=== PATIENT | female | born 1985 | race Caucasian/White ===

== ENCOUNTER 2021-06-28 11:03 | Emergency (ER) | payer OTHER, SELFPAY ==
--- NOTE | 2021-06-28 11:04 | ED.FEMALEGU ---
HPI - Female Genitourinary General Chief complaint: Urogenital-Female Stated complaint: tampon stuck Time Seen by Provider: 06/28/21 11:04 Source: patient and RN notes reviewed History of Present Illness HPI Narrative: Patient is a 35-year-old female who presents the urgent care with complaints of a possible retained tampon. Patient states that she is positive she put a tampon in at around 5:30 AM today. Denies any fevers, chills, nausea, vomiting, pain. No other acute complaints. No acute distress noted. Patient aware of the plan of care. Some parts of this dictation were generated by voice recognition software and may contain typographical and/or grammatical inaccuracies. Related Data Home Medications Medication Instructions Recorded Confirmed omeprazole 20 mg PO DAILY 06/28/21 06/28/21 Allergies Allergy/AdvReac Type Severity Reaction Status Date / Time Penicillins Allergy Mild Unknown Verified 06/28/21 11:13 Review of Systems Review of Systems: CONSTITUTIONAL: Denies fever, chills, or sweats. EYES: Denies visual changes, redness, or discharge. ENT: Denies rhinorrhea, congestion, sore throat, or otalgia. CARDIOVASCULAR: Denies chest pain, palpitations, or edema. RESPIRATORY: Denies cough or dyspnea. GASTROINTESTINAL: Denies abdominal pain, nausea, vomiting, or diarrhea. GENITOURINARY: Denies dysuria or hematuria. Reports of possible retained tampon SKIN: Denies rash or itching. MUSCULOSKELETAL: Denies back pain, joint pain, or myalgia. NEUROLOGIC: Denies headache, numbness, or weakness. All other systems reviewed are negative, except as documented in HPI. PMFSH Comments At the time of my signature, I reviewed and agree with the nursing past medical, surgical, social, and family history. There is no relevant family history pertinent to the patient complaint. Exam Narrative: GENERAL: This is a well-nourished, well-developed patient, in no apparent distress. HEAD: normocephalic, atraumatic. EYES: PERRL. Sclera clear/white. Vision is grossly intact. EARS: External ears normal NOSE: External nose normal with no obvious nasal discharge, nares without redness, no rhinorrhea. THROAT: Mucous membranes moist NECK: Neck supple CARDIOVASCULAR: Regular rate and rhythm without murmurs, gallops, or rubs. RESPIRATORY: Clear to auscultation. Breath sounds equal bilaterally. No wheezes, rales, or rhonchi. : See procedures?note notable retained tampon visualized SKIN: warm, intact with no suspicious lesions or rash, good texture and turgor. NEURO: awake, alert, and oriented to person, place and time. There were no obvious focal neurologic abnormalities. EXTREMITIES: No clubbing, cyanosis, or edema. Course Vital Signs Vital signs: Vital Signs Temperature 98 F 06/28/21 11:09 Pulse Rate 60 06/28/21 11:09 Respiratory Rate 20 06/28/21 11:09 Blood Pressure 152/102 H 06/28/21 11:09 Pulse Oximetry 99 06/28/21 11:09 Temperature 98 F 06/28/21 11:14 Pulse Rate 60 06/28/21 11:14 Respiratory Rate 20 06/28/21 11:14 Blood Pressure 152/102 H 06/28/21 11:14 Pulse Oximetry 99 06/28/21 11:14 Reviewed-patient is informed that they may have pre-hypertension or hypertension based on a blood pressure reading in the department. I recommend the patient call the primary care provider listed on their discharge instructions or a physician of their choice this week to arrange follow-up for further evaluation of possible pre-hypertension or hypertension. Procedures Foreign Body Removal Foreign Body #1: Site: vagina Description of foreign body: other (Possible retained tampon) Sedation/Analgesia: none Confirmed by:: direct visualization Complications: none Post-procedure exam: awake, alert Foreign Body Removal Narrative: No foreign body removed. Suspected retained tampon not present. Used lighted speculum for visualization. Visualized cervix without any notable retain
[2021-06-28 11:09] VITALS: BP 152/102; PULSE 60; RESP 20; TEMP 36.6; O2SAT 99
[2021-06-28 11:14] VITALS: BP 152/102; PULSE 60; RESP 20; TEMP 36.6; O2SAT 99
== END 2021-06-28 11:28 | disposition home or self-care (01) ==
PROVIDERS: Emergency Provider Nurse Practitioner Family
DX: T19.2XXA Foreign body in vulva and vagina, initial encounter (principal); Z98.84 Bariatric surgery status; K21.9 Gastro-esophageal reflux disease without esophagitis
CPT/HCPCS: 99202; G0463

== ENCOUNTER 2022-01-21 08:43 | Emergency (ER) | payer OTHER, SELFPAY ==
[2022-01-21 08:48] VITALS: BP 148/102; PULSE 74; RESP 20; TEMP 37.1; O2SAT 100
[2022-01-21 08:58] VITALS: BP 117/83
--- NOTE | 2022-01-21 09:02 | ED.GENADULT ---
HPI - General Adult General Chief complaint: Anxiety Stated complaint: reaction to prednisone Time Seen by Provider: 01/21/22 09:05 Source: patient and RN notes reviewed Mode of arrival: ambulatory Limitations: no limitations History of Present Illness HPI narrative: 46-year-old female presented for concern of reaction to prednisone, stating she has been tearful and feels chest tightness since yesterday. The day before yesterday, she started prednisone for sinus congestion which she had had for about 6 days. She had a negative rapid COVID test, and she contacted her telehealth doctor who prescribed her prednisone for her symptoms. She took 40 mg on day 1 and day 2, and at that time she developed increased anxiety. She endorses that she has baseline anxiety at an 8, and states she has taken a hit of THC which worsened anxiety yesterday. She denies SI/HI. Denies sob, wheezing, n/v/d/f/c. Related Data Home Medications Medication Instructions Recorded Confirmed prednisone 20 mg PO DAILY 01/21/22 01/21/22 Allergies Allergy/AdvReac Type Severity Reaction Status Date / Time Penicillins Allergy Mild Unknown Verified 01/21/22 09:07 Review of Systems Review of Systems: CONSTITUTIONAL: denies malaise, chills, sweats, fever EYES: Denies visual changes, redness, or discharge ENT: Reports rhinorrhea, congestion, sinus pain, otalgia, sore throat CARDIOVASCULAR: Denies chest pain, palpitations, edema RESPIRATORY: Reports cough, post nasal drainage. Denies dyspnea GASTROINTESTINAL: Denies abdominal pain, nausea, vomiting, diarrhea SKIN: Denies rash or itching MUSCULOSKELETAL: denies myalgia NEUROLOGIC: Denies headache Exam Narrative: GENERAL:tearful, no acute distress. HEAD: Normocephalic EYES: conjunctivae clear ENT: Mucous membranes moist. TM pearly soriano with dull light reflex bilaterally with erythematous canals; no tragal tenderness. Oropharynx erythematous without lesions or exudate, no drooling, no hoarseness, no trismus, uvula midline. NECK: Supple. No lymphadenopathy CHEST: Clear to auscultation, breath sounds equal. No wheezing, rhonchi, rales, or stridor. No respiratory distress, speaks in full sentences. HEART: Regular rate and rhythm. No murmur heard. SKIN: Warm, dry, no rash. NEURO: Alert and oriented x3. PSYCH: tearful, anxious Course Course Emergency Course: Patient is aware of diagnosis, understands and agrees to treatment plan. Anticipatory guidance given. Patient agrees to follow-up as directed and is aware of reasons to seek care at the emergency department. Portions of this record may have been created with voice recognition software Level of Care: Express Care Visit Vital Signs Vital signs: Vital Signs Temperature 98.8 F 01/21/22 08:48 Pulse Rate 74 01/21/22 08:48 Respiratory Rate 20 01/21/22 08:48 Blood Pressure 148/102 H 01/21/22 08:48 Pulse Oximetry 100 01/21/22 08:48 Temperature 98.8 F 01/21/22 08:48 Pulse Rate 74 01/21/22 08:48 Respiratory Rate 20 01/21/22 08:48 Blood Pressure 117/83 01/21/22 08:58 Pulse Oximetry 100 01/21/22 08:48 reviewed Medical Decision Making MDM Narrative Medical decision making narrative: Patient is advised to discontinue the prednisone and use [id number] treatment such as Zyrtec and Flonase for her sinus issues. She states she does not want to see another medical provider, therefore an antibiotic prescription will should her sinus symptoms worsen significantly. She is advised on supportive coping measures to reduce anxiety and to follow-up with her PCP and a therapist, call tomorrow to schedule an appointment. She is aware if symptoms worsen or do not improve she will go to the emergency room today. Differential Diagnosis Differential Diagnosis: Influenza, covid, sinusitis, OM, strep pharyngitis, URI, anxiety Vital Signs Vital Signs: Vital Signs Temperature 98.8 F 01/21/22 08:48 Pulse Rate 74 01/21/22 08:48 Re
== END 2022-01-21 09:34 | disposition home or self-care (01) ==
PROVIDERS: Emergency Provider Nurse Practitioner Family; PCP Family Medicine Sports Medicine
DX: F41.9 Anxiety disorder, unspecified (principal); J30.9 Allergic rhinitis, unspecified
CPT/HCPCS: 99213; G0463

== ENCOUNTER 2022-05-02 18:19 | Emergency (ER) | payer OTHER, SELFPAY ==
[2022-05-02 18:26] VITALS: BP 155/91; PULSE 69; RESP 16; TEMP 37.6; O2SAT 99
--- NOTE | 2022-05-02 18:58 | ED.SKABFB ---
HPI - Skin/Abscess/Foreign Bdy General Chief complaint: Skin/Abscess/Foreign Body Stated complaint: Knot on back Time Seen by Provider: 05/02/22 18:59 Source: patient Mode of arrival: ambulatory Limitations: no limitations History of Present Illness HPI narrative: 36 y/o female presented for c/o 'knot' to mid upper back. First noticed 8 days ago. tried to pop it and just blood expressed at the time. She went to [facility] and kept covered with neosporin until 2 nights ago. He pressed it again and got pus/blood from the site. Today the site is more red and tender. Not taking anything for symptoms. History of hydradenitis suppurativa, using hibaclens daily for years. MD complaint: rash Related Data Home Medications Medication Instructions Recorded Confirmed prednisone 20 mg tablet 20 mg PO DAILY 01/21/22 01/21/22 Allergies Allergy/AdvReac Type Severity Reaction Status Date / Time Penicillins Allergy Mild Unknown Verified 05/02/22 18:57 Review of Systems Review of Systems: CONSTITUTIONAL: Denies body aches, fever, chills, or sweats. EYES: Denies visual changes, redness, or discharge. ENT: Denies rhinorrhea, congestion, sore throat, or otalgia. CARDIOVASCULAR: Denies chest pain, palpitations, or edema. RESPIRATORY: Denies cough or dyspnea. GASTROINTESTINAL: Denies abdominal pain, nausea, vomiting, or diarrhea. GENITOURINARY: Denies dysuria or hematuria. SKIN: Reports boil to back. MUSCULOSKELETAL: Denies back pain, joint pain, or myalgia. NEUROLOGIC: Denies headache, numbness, tingling, or weakness. PMFSH Comments At time of signature, I have reviewed and agree with nursing past medical, surgical, social and family history unless otherwise noted. Please see nursing chart for further information. There is no relevant family history pertinent to the presenting complaint Exam Narrative: GENERAL: Well-appearing, well-nourished, and in no acute distress. HEAD: Normocephalic, atraumatic. EYES: PERRLA, conjunctivae clear, and EOMI. ENT: Mucous membranes moist. Oropharynx without edema, erythema or lesions. NECK: Supple. No lymphadenopathy CHEST: Clear to auscultation. No respiratory distress. HEART: Regular rate and rhythm. SKIN: Warm, dry. mid upper back with 0.5cm firm raised scab at center and surrounding erythema 7cmx4.5cm; tender; no fluctuance or active drainage NEURO: Alert and oriented x3. PSYCH: Normal mood and affect Course Course Emergency Course: Patient is aware of diagnosis, understands and agrees to treatment plan. Anticipatory guidance given. Patient agrees to follow-up as directed and is aware of reasons to seek care at the emergency department. Portions of this record may have been created with voice recognition software Level of Care: Express Care Visit Vital Signs Vital signs: Vital Signs Temperature 99.6 F 05/02/22 18:26 Pulse Rate 69 05/02/22 18:26 Respiratory Rate 16 05/02/22 18:26 Blood Pressure 155/91 H 05/02/22 18:26 Pulse Oximetry 99 05/02/22 18:26 Oxygen Delivery Room Air 05/02/22 18:26 Temperature 99.6 F 05/02/22 18:26 Pulse Rate 69 05/02/22 18:26 Respiratory Rate 16 05/02/22 18:26 Blood Pressure 155/91 H 05/02/22 18:26 Pulse Oximetry 99 05/02/22 18:26 Oxygen Delivery Room Air 05/02/22 18:26 Reviewed MDM - Skin/Abscess/Foreign Bdy MDM Narrative Medical decision making narrative: Unable to do I&D based on PE. Advised supportive measures and reviewed abx Rx. Instructed patient to go to nearest ER immediately for any worsening symptoms including but not limited to: fever, spreading redness, pain, sore throat, headache, dizziness, chest pain, trouble breathing, or any symptoms concerning to the patient. Differential Diagnosis Differential diagnosis: Likely abscess of skin or subcutaneous tissue, urticaria, herpes zoster, cellulitis and contact dermatitis Discharge Plan Discharge Clinical Impression: Abscess of skin or frank
== END 2022-05-02 19:18 | disposition home or self-care (01) ==
PROVIDERS: Emergency Provider Nurse Practitioner Family; PCP Family Medicine Sports Medicine
DX: L02.212 Cutaneous abscess of back [any part, except buttock and flank] (principal); K21.9 Gastro-esophageal reflux disease without esophagitis; Z98.84 Bariatric surgery status
CPT/HCPCS: 99213; G0463

== ENCOUNTER 2023-07-05 14:31 | Emergency (ER) | payer OTHER, SELFPAY ==
[2023-07-05 14:37] VITALS: BP 129/81; PULSE 96; RESP 14; TEMP 37; O2SAT 98
--- NOTE | 2023-07-05 14:43 | ED.GENADULT ---
HPI - General Adult General Chief complaint: Upper Respiratory Infection Stated complaint: flu symptons Source: patient and RN notes reviewed History of Present Illness HPI narrative: 37 yo F presents to urgent care with complaints of a sore throat and post nasal drip since yesterday. Pt also reports left ear pain. Denies any chest pain, SOB, N/V/D, abdominal pain, fevers, or chills. Related Data Home Medications Medication Instructions Recorded Confirmed metformin 500 mg tablet 500 mg PO DAILY 07/05/23 07/05/23 Allergies Allergy/AdvReac Type Severity Reaction Status Date / Time Penicillins Allergy Mild Rash Verified 07/05/23 14:47 prednisone AdvReac Anxiety Verified 07/05/23 14:48 Review of Systems Review of Systems: Pertinent positives and pertinent negatives per HPI. PMFSH Comments At the time of my signature, I reviewed and agree with the nursing past medical, surgical, social, and family history. There is no relevant family history pertinent to the patient complaint. Exam Narrative: GENERAL: This is a well-nourished, well-developed patient, in no apparent distress. HEAD: normocephalic, atraumatic. EYES: Sclera clear/white. Vision is grossly intact. EARS: External ears normal, auditory canals clear and without drainage, TMs normal without perforation. Hearing grossly intact. NOSE: External nose normal with no obvious nasal discharge, nares without redness, no rhinorrhea. THROAT: Mucous membranes moist, posterior pharynx erythremic NECK: Neck supple, non-tender with mild lymphadenopathy. No masses or thyromegaly. CARDIOVASCULAR: Regular rate and rhythm without murmurs, gallops, or rubs. RESPIRATORY: Clear to auscultation. Breath sounds equal bilaterally. No wheezes, rales, or rhonchi. GASTROINTESTINAL: Abdomen soft, non-tender, nondistended. Bowel sounds are active. No hepato-splenomegaly, or palpable masses. No guarding. SKIN: warm, intact with no suspicious lesions or rash, good texture and turgor. NEURO: awake, alert, and oriented to person, place and time. There were no obvious focal neurologic abnormalities. EXTREMITIES: No clubbing, cyanosis, or edema. No joint tenderness, effusion, or edema noted. BACK: Nontender without deformity or crepitus. No flank tenderness. Course Course Level of Care: Express Care Visit Vital Signs Vital signs: Vital Signs Temperature 98.6 F 07/05/23 14:37 Pulse Rate 96 07/05/23 14:37 Respiratory Rate 14 07/05/23 14:37 Blood Pressure 129/81 07/05/23 14:37 Pulse Oximetry 98 07/05/23 14:37 Oxygen Delivery Room Air 07/05/23 14:37 Temperature 98.6 F 07/05/23 14:37 Pulse Rate 96 07/05/23 14:37 Respiratory Rate 14 07/05/23 14:37 Blood Pressure 129/81 07/05/23 14:37 Pulse Oximetry 98 07/05/23 14:37 Oxygen Delivery Room Air 07/05/23 14:37 Reviewed Medical Decision Making MDM Narrative Medical decision making narrative: After 24 hours on antibiotics throw tooth brush away and start using a new one. Increase your Vitamin C. Do not share drinks. Take Motrin alternating with Tylenol for pain and/or fever alternating every 4 hours. Increase fluids, avoid caffeine. Take a probiotic daily or eat a low sugar yogurt while taking the antibiotic. Follow up with Primary provider if not getting better this week Differential Diagnosis Differential Diagnosis: strep throat, viral pharyngitis, URI Vital Signs Vital Signs: Vital Signs Temperature 98.6 F 07/05/23 14:37 Pulse Rate 96 07/05/23 14:37 Respiratory Rate 14 07/05/23 14:37 Blood Pressure 129/81 07/05/23 14:37 Pulse Oximetry 98 07/05/23 14:37 Oxygen Delivery Room Air 07/05/23 14:37 Temperature 98.6 F 07/05/23 14:37 Pulse Rate 96 07/05/23 14:37 Respiratory Rate 14 07/05/23 14:37 Blood Pressure 129/81 07/05/23 14:37 Pulse Oximetry 98 07/05/23 14:37 Oxygen Delivery Room Air 07/05/23 14:37 Lab Data Lab results reviewed: Yes
== END 2023-07-05 15:01 | disposition home or self-care (01) ==
PROVIDERS: Emergency Provider Nurse Practitioner Family; PCP Family Medicine Sports Medicine
DX: J02.0 Streptococcal pharyngitis (principal); K21.9 Gastro-esophageal reflux disease without esophagitis; E28.2 Polycystic ovarian syndrome; Z98.84 Bariatric surgery status
CPT/HCPCS: 87880; 99213; G0463

== ENCOUNTER 2023-08-16 17:39 | Emergency (ER) | payer OTHER, SELFPAY ==
[2023-08-16 17:45] VITALS: BP 148/93; PULSE 75; RESP 16; TEMP 36.4; O2SAT 100
--- NOTE | 2023-08-16 18:09 | ED.URI ---
HPI - URI/Sore Throat General Chief Complaint: Upper Respiratory Infection Stated Complaint: Congestion/Cough/Ear Problem Time Seen by Provider: 08/16/23 17:41 Source: patient Mode of arrival: ambulatory Limitations: no limitations History of Present Illness HPI Narrative: Shasha is a 30-year-old female patient presenting to clinic today with complaints of cough, congestion, left ear pain x1 week. She reports no fever or chills. Also reports that her eyes have been watering and goopy. MD elicited complaint: sore throat and nasal congestion Related Data Home Medications Medication Instructions Recorded Confirmed metformin 500 mg tablet 500 mg PO DAILY 07/05/23 08/16/23 Allergies Allergy/AdvReac Type Severity Reaction Status Date / Time Penicillins Allergy Mild Rash Verified 07/05/23 14:47 prednisone AdvReac Anxiety Verified 07/05/23 14:48 Review of Systems Review of Systems: Pertinent positives per HPI. Patient denies any fever, chills, rash, headache, visual changes, dizziness, shortness of breath, chest pain, palpitations, nausea, vomiting, diarrhea, constipation, abdominal pain, or any urinary issues. [facility] Comments At the time of my signature, I reviewed and agree with the nursing past medical, surgical, social, and family history. There is no relevant family history pertinent to the patient complaint. Exam Narrative: General: Well-developed, morbidly obese, in no apparent distress Head: Normocephalic, atraumatic Eyes: Pupils equally round and reactive to light bilaterally, EOM intact, sclera and conjunctive clear, no discharge, lids normal Ears: Right tMs intact and clear, left TM intact, bulging, red ear canals clear, no drainage, grossly hearing normal. Nose: Nares patent, clear nasal discharge, moderate inflammation, no sinus tenderness. Mouth: Oral pharynx without lesions or masses, good dentition, MMM. Postnasal drip Neck: Supple, trachea midline, no enlargement of anterior or posterior cervical nodes, no thyroid masses or goiter palpable. Cardio: Regular rate and rhythm, s1 and s2 normal, no murmur appreciated. Resp: Clear to auscultation bilaterally, no rhonchi, rales, wheezing or rubs Course Course Emergency Course: Portions of this record may have been created with voice recognition software. Level of Care: Express Care Visit Vital Signs Vital signs: Vital Signs Temperature 36.4 C 08/16/23 17:45 Pulse Rate 75 08/16/23 17:45 Respiratory Rate 16 08/16/23 17:45 Blood Pressure 148/93 H 08/16/23 17:45 Pulse Oximetry 100 08/16/23 17:45 Oxygen Delivery Room Air 08/16/23 17:45 Temperature 36.4 C 08/16/23 17:45 Pulse Rate 75 08/16/23 17:45 Respiratory Rate 16 08/16/23 17:45 Blood Pressure 148/93 H 08/16/23 17:45 Pulse Oximetry 100 08/16/23 17:45 Oxygen Delivery Room Air 08/16/23 17:45 Vital signs reviewed MDM - URI/Sore Throat MDM Narrative Medical decision making narrative: At the time of visit patient is resting comfortably on exam table. I suspect patient has URI with left otitis media. Prescription for azithromycin was sent to the pharmacy and supportive measures were discussed with the patient she voiced understanding discharge instructions and agrees to treatment plan. Return precautions were reviewed Differential Diagnosis Differential diagnosis: Likely upper respiratory infection, otitis media, sinusitis, viral infection, bronchitis, influenza, pharyngitis and other (COVID) Discharge Plan Discharge Clinical Impression: Acute left otitis media Upper respiratory infection Qualifiers: URI type: unspecified URI Qualified Code(s): J06.9 - Acute upper respiratory infection, unspecified Patient Disposition: Home, Self-Care Condition: Stable Instructions: Antibiotic Form, Ear Infection (ED), Upper Respiratory Infection (ED) Additional Instructions: Take prescription medications only as prescribed-azithromycin
== END 2023-08-16 18:14 | disposition home or self-care (01) ==
PROVIDERS: Emergency Provider Nurse Practitioner Family; PCP Family Medicine Sports Medicine
DX: H66.92 Otitis media, unspecified, left ear (principal); J06.9 Acute upper respiratory infection, unspecified; K21.9 Gastro-esophageal reflux disease without esophagitis; E28.2 Polycystic ovarian syndrome; Z98.84 Bariatric surgery status
CPT/HCPCS: 99213; G0463

== ENCOUNTER 2024-07-18 11:33 | Emergency (ER) | payer OTHER, SELFPAY ==
[2024-07-18 11:38] VITALS: BP 139/95; PULSE 77; RESP 20; TEMP 37.3; O2SAT 100
--- NOTE | 2024-07-18 11:52 | ED_ITS ---
HPI - URI/Sore Throat General Chief Complaint: Upper Respiratory Infection Stated Complaint: Upper respiratory History of Present Illness HPI Narrative: Patient presents with a 2 day history of nasal congestion runny nose slight fever denies body aches no shortness of breath no chest pain and no sore throat. Patient is not taking anything [id number] for her symptoms. Related Data Home Medications Medication Instructions Recorded Confirmed semaglutide (weight loss) 1.7 See Rx Instructions .Route .COMPLEX 07/18/24 07/18/24 mg/0.75 mL subcutaneous pen injector (Wegovy) Allergies Allergy/AdvReac Type Severity Reaction Status Date / Time Penicillins Allergy Mild Rash Verified 07/18/24 11:52 prednisone AdvReac Anxiety Verified 07/18/24 11:52 Review of Systems Review of Systems: CONSTITUTIONAL: Denies chills, or sweats. Reports fever and generalized body aches EYES: Denies visual changes, redness, or discharge. ENT: Denies otalgia. Reports nasal congestion runny nose and sore throat CARDIOVASCULAR: Denies chest pain, palpitations, or edema. RESPIRATORY: Denies dyspnea. Reports occasional cough GASTROINTESTINAL: Denies abdominal pain, nausea, vomiting, or diarrhea. GENITOURINARY: Denies dysuria or hematuria. SKIN: Denies rash or itching. MUSCULOSKELETAL: Denies back pain, joint pain, or myalgia. Reports generalized body aches NEUROLOGIC: Denies headache, numbness, or weakness. PSYCHIATRIC: Denies anxiety or depression. PMFSH Comments At time of signature, agree with nursing past medical, surgical, social and family history. There is no relevant family history pertinent to the presenting complaint Exam Narrative: The patient is a well-developed, well-nourished in no acute distress. SKIN: Skin is warm and dry without erythema, swelling or exudate. There is good turgor. No tenting. HEAD: Atraumatic. Normocephalic. No temporal or scalp tenderness. EYES: Moist and bright. Sclera and conjunctivae normal. No discharge. PERRLA. Extraocular motions intact. Gross visual acuity intact. EARS: Pinna is normal shape and contour. Clear external auditory canals. TM pearly wallace with good cone of light, no erythema or suppuration. Bilateral cerumen noted no gross hearing deficit. NOSE: pink, moist mucosa with good air movement. Clear rhinorrhea without nasal flaring. Septum midline. Mouth: moist mucous membranes. THROAT; mild erythema noted to posterior oropharynx with moderate postnasal drainage. Without exudate or ulceration.. Uvula midline. Normal movement of soft palate. NECK: Supple and nontender with full range of motion without discomfort. No meningeal signs. LUNGS: Equal and bilateral breath sounds without wheezes, rales or rhonchi. CHEST: The chest wall is without retractions or use of accessory muscles. HEART: Has a regular rate and rhythm without murmur, gallops, click or rub. ABDOMEN: Soft, nontender with positive active bowel sounds. No rebound tende rness. EXTREMITIES: Without cyanosis, clubbing or edema. Equal 2+ distal pulses and 2 second capillary refill noted. NEUROLOGIC: alert, active, . The patient moves all extremities with normal muscle strength. Normal muscle tone is noted. Normal coordination is noted. NO focal neurological findings noted. Course Course Level of Care: Express Care Visit Vital Signs Vital signs: Vital Signs Temperature 37.3 C 07/18/24 11:38 Pulse Rate 77 07/18/24 11:38 Respiratory Rate 20 07/18/24 11:38 Blood Pressure 139/95 H 07/18/24 11:38 Pulse Oximetry 100 07/18/24 11:38 Oxygen Delivery Room Air 07/18/24 11:38 Temperature 37.3 C 07/18/24 11:38 Pulse Rate 77 07/18/24 11:38 Respiratory Rate 20 07/18/24 11:38 Blood Pressure 139/95 H 07/18/24 11:38 Pulse Oximetry 100 07/18/24 11:38 Oxygen Delivery Room Air 07/18/24 11:38 Please DHAVAL schedule a followup visit with your personal physician for further evaluation and treatment. Including recheck and discussion of your blood pressure. If your symptoms persist, change or worsen significantly before you can contact your personal physician then please, without delay, go to the emergency department for further evaluation Discharge Plan Discharge Clinical Impression: Upper respiratory infection, viral Patient Disposition: Home, Self-Care Condition: Stable Instructions: Cold Symptoms (ED) Additional Instructions: *Throw away your current toothbrush and begin using a new toothbrush in 48 hours in order to prevent re-infection. If anyone else's toothbrush is stored near yours, they should also throw away their current toothbrush and begin using a new one. *Sanitize all reusable water bottles. *Do not share items with others. *Wash your hands often. Supportive care/Soothing measures/Pain relief: *Avoid cigarette smoke (including secondhand smoke) *Avoid acidic foods and beverages *Eat a soft diet for the next 3-4 days *Salt water gargles may alleviate some of the throat discomfort. Most recipes call for ? to ? teaspoon of salt per 8 ounces (approximately 240 mL) of warm water. *You can take tylenol or ibuprofen per the package instructions for pain/fever. *Sipping cold or warm beverages (eg, tea with honey or lemon) *Eat cold or frozen desserts (eg, ice cream, popsicles) *Sucking on ice *Sucking on hard candy Viruses are everywhere and can spread like wildfire. Sx can last up to 3-4 weeks. Treatment is aimed toward your specific symptoms. You must treat your symptoms in order to feel better while the virus runs it's course. Increase fluids especially water. Do not share items with others. You can take Tylenol or ibuprofen per the package instructions for pain/fever. Wash your hands as often as possible. Purchase and begin using an over the counter antihistamine/decongestant combo such as Zyrtec D, Inocencia D, Claritin D as well as Flonase nasal spray per the package instructions. Salt water gargles may alleviate some of your throat discomfort. Go to the ER if your symptoms become worse of if ANY new symptoms develop Prescriptions: New cetirizine [Zyrtec] 10 mg tablet 10 mg PO DAILY 30 Days Qty: 30 0RF fluticasone propionate [Flonase Allergy Relief] 50 mcg/actuation spray,suspension 2 spray intranasal BID Qty: 16 0RF Rx Instructions: administer into each nostril No Action Wegovy 1.7 mg/0.75 mL pen injector See Rx Instructions .ROUTE .COMPLEX Rx Instructions: as prescribed Follow-up/Referrals: Sarah,Paul Alvarenga MD [Primary Care Provider] - Stand Alone Forms: Work/School Release IP
[2024-07-18 12:08] LABS: EDINFLUASCREEN Negative (Negative); EDINFLUBSCREEN Negative (Negative)
[2024-07-18 12:09] LABS: EDCOVIDSCREEN Negative (Negative)
== END 2024-07-18 12:10 | disposition home or self-care (01) ==
PROVIDERS: Emergency Provider Nurse Practitioner Family; PCP Family Medicine Sports Medicine
DX: J06.9 Acute upper respiratory infection, unspecified (principal); Z20.822 Contact with and (suspected) exposure to COVID-19; K21.9 Gastro-esophageal reflux disease without esophagitis; E28.2 Polycystic ovarian syndrome; Z98.84 Bariatric surgery status
CPT/HCPCS: 87426; 87804; 99213; G0463

== ENCOUNTER 2025-01-12 18:49 | Emergency (ER) | payer OTHER, SELFPAY ==
--- OUTSIDE RECORDS SUMMARY | 2025-01-12 18:52 | XMS_ITS | Encounter Summary ---
Author Organization [facility] Address [address] [address] Care Team Providers Care Materials Development Engineer Name Role Phone Anastacio Sheriff MD Primary Care Provider [phone] Paul Smith MD Primary Care Provider [phone] Reason for Visit * Reason Onset Date Comments MEDICATION REFILL 12/02/2020 Encounter Details Date Type Department Care Team (Late st Contact Info) Description 12/02/2020 Refill [facility]YS OB [address] [place], [place] [id number] Shruthi Martinez, DO [address] [place] [address] MEDICATION REFILL Social History Tobacco Use Types Packs/Day Years Used Date Smoking Tobacco: Never Smokeless Tobacco: Never Alcohol Use Standard Drinks/Week Comments No 0 (1 standard drink = 0.6 oz pur e alcohol) Comments No Sex and Gender Information Value Date Recorded Sex Assigned at Not on file Legal Sex Female 11:06 AM CDT Gender Identity Not on file Sexual Orientation Not on file documented as of this encounter Functional Status * Is person deaf or have serious hearing difficulty? Answer Date of Assessment Author No 10/26/2020 9:03 AM TRANSITION TEACHER Cherri, Ta ylor N, RN * Is person blind or have serious difficulty seeing? Answer Date of Assessment Author No 10/26/2020 9:03 AM Lennox Gongora RN * Does person have serious difficulty walking/climbing stairs? Answer Date of Assessment Author No 10/26/2020 9:03 AM Lennox Gongora RN * Does person have difficulty dressing/bathing? Answer Date of Assessment Author No 10/26/2020 9:03 AM Lennox Gongora RN * Does person have difficulty doing errands alone? Answer Date of Assessment Author No 10/26/2020 9:03 AM Lennox Gongora RN documented as of this encounter Mental Status * Does person have difficulty concentrating/remembering/making decisions? Answer Entry Date Author No 10/26/2020 9:03 AM Lennox Gongora RN documented in this encounter Plan of Treatment Not on file documented as of this encounter Visit Diagnoses Not on filedocumented in this encounter Care Teams Materials Development Engineer Relationship Specialty Start Date End Date Anastacio Sheriff MD [address] [place] [address] PCP - General 10/28/20 05/22/22 Paul Smith MD [address] [place] [address] PCP - General Family Medicine 05/23/22 documented as of this encounter
--- OUTSIDE RECORDS SUMMARY | 2025-01-12 18:52 | XMS_ITS | Encounter Summary ---
Author Organization [facility] Address [address] [place] [address] Care Team Providers Care Progressive Die Maker Name Role Phone Anastacio Sheriff MD Primary Care Provider [phone] Paul Smith MD Primary Care Provider [phone] Reason for Visit * Reason Comments Refill Request Encounter Details Date Type Department Care Team (Late st Contact Info) Description 11/19/2020 Refill [facility] PHYS [address] [place], [place] [id number] Shruthi Martinez, DO [address] [place] [address] Refill Request Social History Tobacco Use Types Packs/Day Years [...] 10/26/2020 9:03 AM Lennox Gongora RN * Is person blind or have [...] on filedocumented in this encounter Care Teams Progressive Die Maker Relationship Specialty Start Date End Date Anastacio Sheriff MD [address] [place] [address] PCP - General 10/28/20 05/22/22 Paul Smith MD [address] [place] [address] PCP - General Family Medicine 05/23/22 documented as of this encounter
--- OUTSIDE RECORDS SUMMARY | 2025-01-12 18:52 | XMS_ITS | Clinical Summary ---
Author Organization [facility] Address [address] [place] [address] Care Team Providers Care Nuclear Equipment Research Engineer Name Role Phone Paul Smith MD Primary Care Provider [phone] Source Comments [facility],non-owned Affiliates and Associated Physician Practices is amultiple site organization consisting of ambulatory clinics and hospital sitesin [place], [place], [place]. This disclosure is being madepursuant to the Care Everywhere program and may not contain all information available regarding this patient. Last updated 18.[facility] Allergies Active Allergy Reactions Criticality Noted Date Comments Penicillins Other 12/14/2016 Unknown reaction as a child Patient's mother is allergic. Prednisone Palpitations 06/12/2024 Medications * Be aware that medications may not be up to date on this document. Alwaysverify current medications with the patient. Vit-DSS-Fe Cbn-FA (MYNATAL) 90-1 MG TABS Take 1 tablet by mouth once daily 90 tablet 3 0 Active Additional Information Patient not taking.Reported on 06/12/2024 vitamin D, ergocalciferol, (DRISDOL) 1.25 MG (70828 UT) capsuleIndicati ons:Vitamin D Deficiency Take 1 capsule by mouth every 7 days Reasons: Vitamin D Deficiency 12 capsule 1 0 Active Additional Information Patient not taking.Reported on 06/12/2024 Cyanocobalamin (VITAMIN B-12 1000 MCG) 1000 MCG SUBL Dissolve 1 drop under the tongue once daily To be used in place of 1000 mg po tablets. Patient will take sublingual. 30 tablet 2 0 Active Additional Information Patient not taking.Reported on 06/12/2024 norethindrone (ORTHO MICRONOR; NOR-QD; SIXTO; CHERRIE; MIRIAM-BE; GRISELDA; JOLIVETTE) 0.35 MG tablet Take 1 (one) tablet by mouth once daily 90 tablet 4 1 Active Additional Information Patient not taking.Reported on 06/12/2024 NIFEdipine CR osmotic 24hr (PROCARDIA-XL) 30 MG tablet Take 1 (one) tablet by mouth once daily Appointment with PCP for additional refills. 30 tablet 1 Active Additional Information Patient not taking.Reported on 06/12/2024 norethindrone (Ortho Micronor; Nor-Qd; Sixto; Cherrie; Miriam-Be; Griselda; Jolivette) 0.35 MG tablet Take 1 (one) tablet by mouth once daily 90 tablet 4 2 Active Additional Information Patient not taking.Reported on 06/12/2024 Wegovy 0.25 MG/0.5ML pen 4 Active Active Problems Problem Noted Date Diagnosed Date Family history of breast cancer 06/12/2024 Family history of breast cancer 06/12/2024 Anemia during in third trimester 09/07 Anemia of mother in , antepartum, third trimester 09/07/2020 Maternal morbid obesity, delivered, current hosp italization 08/21/2020 Overview (08/21/2020): BMI 49.0 pre-; lower starting weight than last Essential hypertension during , deliver ed 08/21/2020 Overview (08/21/2020): BP 140/90 at 7 weeks; Baseline 24 hour protein 126 mg Previous bariatric surgery complicating pregnanc y 08/21/2020 Overview (08/21/2020): Gastric sleeve 2011; B12 low normal, vitamin D low, hx low ferritin, A1c 4.9% Advanced maternal age in multigravida 08/21/2020 Overview (08/21/2020): NIPT low risk Heartburn during 08/21/2020 Overview (08/21/2020): Improved with omeprazole care following delivery 02/2020 Overview (08/21/2020): LTCS, 2-layer closure, done for breech at 34 weeks for preeclampsia with severe features Hx of preeclampsia, prior , currently p regnant 08/21/2020 Overview (08/21/2020): Severe requiring delivery at 34 weeks History of syncope 08/21/2020 Overview (08/21/2020): Related to hypertensive medication History of sleeve gastrectomy 01/18/2017 Overview (08/21/2020): Vertical sleeve gastrectomy 04/2012. Lost 140 lb. Supervision of high-risk 01/18/2017 Overview (01/18/2017): A+/I/-/-, HIV NR Polycystic ovarian syndrome 07/18/2016 Female infertility associated with anovulation 0 10/12/2014 Benign intracranial hypertension Overview (08/21/2020): Previously treated with Diamox; possible misdiagnosis Resolved Problems Problem Noted Date Diagnosed Date Resolved Date Morbid obesity with BMI of 50.0-59.9, adult 01/10/2017 08/21/2020 Gestational hypertension wit hout significant proteinuria 01/02/2017 08/21/2020 Encounters Date Type Department Care Team Description 11/04/2024 2:01 PM SENIOR SVP - 11/04/2024 11:59 PM SENIOR SVP Hospital Encounter [facility] MRI [address] [place] [address] Tracy Berry MD Discharge Disposition: Home or Self Care from Last 3 Months Immunizations Immunization Administration Dates Next Due INFLUENZA VACCINE, QUADR. (F LUZONE; FLULAVAL; FLUARIX; AFLURIA QUADRIVALENT; 6MO+), 0.5 ML (IIV4) 06/15/2020 Influenza Intradermal 08/14/2016 MMR 10/27/2020() TDAP (7yrs+) 10/27/2020(Deferred: See Comments - got on 09/21),09/21/2020,12/06/2016 Family History Medical History Relation Name Comments Hypertension Father None Known Maternal Aunt 1 None Known Maternal Aunt 2 None Known Maternal Aunt 3 None Known Maternal Aunt 4 Cancer - Breast Maternal Cousin 1 Cancer - Breast Maternal Cousin 2 Cancer - Breast Maternal Cousin 3 None Known Maternal Grandfather Blood Clots Maternal Grandmother Cancer - Cervical Maternal Grandmother Cancer - Ovarian Maternal Grandmother Diabetes Maternal Grandmother Hypertension Maternal Grandmother Anesthesia Reaction Mother None Known Paternal Aunt Cancer - Breast Paternal Grandmother None Known Paternal Uncle 1 None Known Paternal Uncle 2 None Known Sister Relation Name Status Comments Father Maternal Aunt 1 Maternal Aunt 2 Maternal Aunt 3 Maternal Aunt 4 Maternal Cousin 1 Maternal Cousin 2 Maternal Cousin 3 Maternal Grandfather Maternal Grandmother Mother Paternal Aunt Paternal Grandmother Paternal Uncle 1 Paternal Uncle 2 Sister Social History Tobacco Use Types Packs/Day Years Used Date Smoking Tobacco: Never Smokeless Tobacco: Never Tobacco Cessation:Counseling Given: Not Answered Alcohol Use Standard Drinks/Week Comments No 0 (1 standard drink = 0.6 oz pur e alcohol) PHQ-2 Answer Date Recorded Patient Health Questionnaire-2 Score 0 06/11/2024 Comments No Sex and Gender Information Value Date Recorded Sex Assigned at Not on file Legal Sex Female 11:06 AM CDT Gender Identity Not on file Sexual Orientation Not on file Last Filed Vital Signs Vital Sign Reading Time Taken Comments Blood Pressure 124/76 06/12/2024 1:23 PM CDT Pulse 88 12/02/2020 3:32 PM CDT Temperature 36 C (96.8 F) 12/02/2020 3:32 PM CDT Respiratory Rate 18 10/29/2020 7:35 AM SENIOR SVP Oxygen Saturation 99% 10/29/2020 7:35 AM SENIOR SVP Inhaled Oxygen Concentration - - Weight 117.9 kg (260 lb) 06/25/2024 3:18 PM CDT Height 157.5 cm (5' 2 ) 06/25/2024 3:18 PM CDT Body Mass Index 47.55 06/25/2024 3:18 PM CDT Plan of Treatment Health Maintenance Due Date Last Done Comments HEPATITIS C SCREENING 08/08/2003 HEPATITIS B VACCINE (1 of 3 - 19+ 3-dose series) 2004 COVID-19 VACCINE ( - season) 2024 08/24/2021, 01/03/2021, 12/06/2020 DEPRESSION SCREENING 09/16/2024 06/12/2024 INFLUENZA VACCINE (Season Ended) 2025 08/24/2021, 06/15/2020, 08/14/2016 PAP with HPV 06/12/2029 06/12/2024, 10/22/2018 DTAP/TDAP/TD VACCINES (3 - Td or Tdap) 09/21/2030 09/21/2020, 12/06/2016 ZOSTER VACCINE (1 of 2) 2035 HIV SCREENING Completed 08/10/2020, 07/17, 04/08/2020, Additional history exists HIB VACCINE Aged Out No longer eligi ble based on patient's age to complete this topic HPV VACCINE Aged Out No longer eligi ble based on patient's age to complete this topic MENINGOCOCCAL (Group B) VACCINE SHARED DECISION-MAKING Aged Out No longer eligible based on patient's age to complete this topic MENINGOCOCCAL GROUPS A/C/Y/W VACCINE Aged Out No longer eligible based on patient's age to complete this topic PNEUMOCOCCAL VACCINE Aged Out No long er eligible based on patient's age to complete this topic Procedures Procedure Name Priority Date/Time Associated Diagnosis Comments MRI BREAST BILAT SCREENING WWO Routine 11/04/2024 2:56 PM SENIOR SVP CHEK2 gene mutation positive HPV DETECTION HIGH RISK VINCE Routine 06/12/2024 2:41 PM CDT Screening for cervical cancer HIV-1 HIV-2 ANTIBODY + HIV P24 AG PANEL Routine 08/10/2020 12:29 PM SENIOR SVP History of gastric surgery Supervision of high risk in third trimester Screen for STD (sexually transmitted disease) from Last 3 Months or Most Recently Relevant to Health Maintenance Results * MRI Breast Bilat Screening Wwo (11/04/2024 2:56 PM SENIOR SVP) Anatomical Region Laterality Modality Breast Bilateral Magnetic Resonan ce 11/04/2024 3:06 PM SENIOR SVP Impressions 11/04/2024 5:13 PM SENIOR SVP IMPRESSION: 1. No suspicious finding within either breast. 2. Skin enhancement in the upper outer left breast. Clinical evaluation is recommended RECOMMENDATION: 1. Screening mammography is due in June 2025. 2. Given her elevated lifetime risk of developing breast cancer of greater than 20 %, screening breast MRI is recommended in 1 year. 3. Clinical evaluation of the upper outer left breast skin is recommended to correspond to the enhancement on MRI. Patient will receive the results by lay letter. Right breast MRI: BI-RADS category: 1: Negative Left breast MRI: BI-RADS category: 1: Negative OVERALL ASSESSMENT: BI-RADS CATEGORY 1: NEGATIVE. > Interpreting Provider: Yuridia Alfredo MD on 11/04/2024 5:13 PM Narrative 11/04/2024 5:13 PM SENIOR SVP EXAM: BILATERAL BREAST MRI WITH AND WITHOUT CONTRAST WITH DYNACAD ANALYSIS LOCATION: [facility] EXAM DATE: 11/04/2024 HISTORY: 39-year-old woman with high lifetime risk of breast malignancy greater than 20%. The patient has a family history of breast malignancy. The patient has a check 2 mutation. The patient presents for her screening MRI Last menstrual period: Per documentation the patient is not menstruating. COMPARISON: 06/25/2024 05/23/2023 CONTRAST: 20 cc Dotarem IV. TECHNICAL INFORMATION: Study performed on a 3.0 Gisela magnet. A breast coil was utilized. Bilateral axial T1 and axial STIR images, followed by 3D axial T1 fat sat images precontrast and 2 postcontrasted 3D axial fat sat series dynamically, one at 90 seconds and the other at 5 minutes after contrast administration. Between the 2 axial postcontrast images, a sagittal T1-weighted gradient with fat sat was performed of each breast. Subtraction was performed of the 2 axial T1 weighted postcontrast images. Images were reviewed on a workstation with 3D post processing and DynaCAD was utilized. FINDINGS: Parenchymal breast pattern: Scattered fibroglandular tissue. Background parenchymal enhancement: Minimal Enhancement is Symmetric. Right breast: There is no suspicious finding in the right breast . A benign-appearing lymph node is seen in the lower far posterior breast. Left breast: There is no suspicious finding in the left breast. In the left upper outer breast at mid depth best visualized on location 23.93 there is some skin enhancement. Normal morphologically normal axillary lymph nodes are visualized. There is a left internal mammary lymph node consistent with a physiologic lymph node. Tracy Berry MD MR ORDERABLES Final Res ult * HPV DETECTION HIGH RISK VINCE (06/12/2024 2:41 PM CDT) [facility] High Risk Human Papilloma Result Not detected Not detected 06/18/2024 2:46 PM CDT [facility] High Risk Human Papilloma Interp 06/18/2024 2:46 PM CDT [facility] Comment:High Risk Human Giuseppe lloma Virus was Not Detected. Pathology/Cytolo gy MISCELLANEOUS SAMPLES / Unknown 06/12/2024 2:41 PM CDT 06/15/2024 12:51 PM CDT Narrative [facility] - 06/18/2024 2:46 PM CDT Nucleic acid isolated from the specimen was analyzed with a nucleic acid amplification test (FDA approved Gen-Probe HPV Assay) to detect high risk human papilloma virus (Types: 16, 18, 31, 33, 35, 39, 45, 51, 52, 56, 58, 59, 66, and 68). The reference range is Not Detected . Comment: These test results should not be used as the sole basis for clinical assessment and treatment of patients. These results should always be correlated with other available data (cytology, histology, and clinical information). Tracy Berry MD LAB - MICROBIOLOGY ORDERA BLES Final Result [facility] [address] [place] [address], [facility] [phone] * HIV-1 HIV-2 ANTIBODY + HIV P24 AG PANEL (08/10/2020 12:29 PM SENIOR SVP) HIV Screen 4th Generation w Reflex NON-REACT CARLOS EDUARDO NON-REACT CARLOS EDUAROD [facility] Comment: HIV-1 antigen and HIV-1/HIV-2 antibodies were not detected. There is no laboratory evidence of HIV infection. PLEASE NOTE: This information has been disclosed to you from records whose confidentiality may be protected by state law. If your state requires such protection, then the state law prohibits you from making any further disclosure of the information without the specific written consent of the person to whom it pertains, or as otherwise permitted by law. A general authorization for the release of medical or other information is NOT sufficient for this purpose. For additional information please refer to http://education.Lumi Mobile/faq/SBW011 (This link is being provided for informational/ educational purposes only.) The performance of this assay has not been clinically validated in patients less than 2 years old. Test Performed at: [facility] [address] [place] [address] LYNDSEY PRIETO DO,MPH Blood BLOOD SPECIMEN / Unknown 08/10/2020 12:29 PM SENIOR SVP 08/10/2020 1:29 PM SENIOR SVP Yoni English MD LAB - CHEMISTRY ORDERA [facility] Final Result [facility] [id number] [place] [address] from Last 3 Months or Most Recently Relevant to Health Maintenance Insurance AETNA AETNA Advance Directives * Full Code (Latest Code Status on File) Date Activated Date Inactivated Comments 10/26/2020 8:33 AM 10/29/2020 12:51 PM * Full Code Date Activated Date Inactivated Comments 07/25/2020 2:39 PM 07/26/2020 2:01 PM * Full Code Date Activated Date Inactivated Comments 07/25/2020 11:47 AM 07/25/2020 2:39 PM * Full Code Date Activated Date Inactivated Comments 01/20/2017 4:32 PM 01/25/2017 4:09 PM * Full Code Date Activated Date Inactivated Comments 01/18/2017 5:51 PM 01/20/2017 4:32 PM Care Teams Nuclear Equipment Research Engineer Relationship Specialty Start Date End Date Paul Smith MD [address] [place] [address] PCP - General Family Medicine 05/23/22
[2025-01-12 18:56] VITALS: BP 156/106; PULSE 80; RESP 20; TEMP 37; O2SAT 100
--- NOTE | 2025-01-12 19:02 | ED.NAVMDI ---
HPI - Nausea/Vomiting/Diarrhea General Chief complaint: Nausea/Vomiting/Diarrhea Stated complaint: Vomiting Time Seen by Provider: 01/12/25 19:11 Source: patient and RN notes reviewed Mode of arrival: ambulatory Limitations: no limitations History of Present Illness HPI Narrative: 39 y/o female presented for c/o nausea and vomiting. Onset midnight. States she attributes this to taking Wegovy, which often causes her nausea and occasionally dry heaves. She missed last weeks dose, and took a dose yesterday at 1400. LBM today, normal. 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 Unable to keep any food down today. Denies concern for , had vasectomy checked recently; LMP 1 week ago. Denies abdominal pain, constipation, fever, body aches. Related Data Home Medications ?Medication ?Instructions ?Recorded ?Confirmed ?Last Taken ?Type semaglutide (weight loss) 1.7 See Rx Instructions .Route .COMPLEX 07/18/24 07/18/24 Unknown History mg/0.75 mL subcutaneous pen injector (Wegovy) pantoprazole 40 mg tablet,delayed mg PO 01/12/25 Unknown History release Allergies Allergy/AdvReac Type Severity Reaction Status Date / Time Penicillins Allergy Mild Rash Verified 01/12/25 19:01 prednisone AdvReac Anxiety Verified 01/12/25 19:01 Review of Systems Review of Systems: CONSTITUTIONAL: Denies body aches, fever, chills ENT: Denies rhinorrhea, congestion CARDIOVASCULAR: Denies chest pain, palpitations, or edema. RESPIRATORY: Denies cough or dyspnea. GASTROINTESTINAL: Endorses nausea, vomiting, Denies abdominal pain, diarrhea, hematochezia, melena, hematemesis GENITOURINARY: Denies dysuria, hematuria, or CVA tenderness. SKIN: Denies rash, itching, or wounds. MUSCULOSKELETAL: Denies back pain, joint pain, or myalgia. NEUROLOGIC: Denies headache, numbness, tingling, or weakness. All systems reviewed & are unremarkable except as noted in HPI and below PMFSH Surgical History Surgical History (Updated 01/12/25 @ 19:14 by Savanna Craig, MARILYN) H/O gastric sleeve Comments At time of signature, I have reviewed and agree with nursing past medical, surgical, social and family history unless otherwise noted. Please see nursing chart for further information. There is no relevant family history pertinent to the presenting complaint Exam Narrative: GENERAL: mildly ill-appearing, in no acute distress. EYES: EOMI. Conjunctivae normal. ENT: Mucous membranes pink and moist. CHEST: No respiratory distress. Clear to auscultation. HEART: Regular rate and rhythm. No murmur appreciated. Normal peripheral pulses. ABDOMEN: Dry heaves in room. abd soft, nondistended, normal active bowel sounds. Nontender abdomen; No guarding, rebound tenderness, asymmetry EXTREMITIES: Normal range of motion. No edema. SKIN: Warm, dry, no rash. Capillary refill normal. Normal skin turgor. NEURO: No focal deficits. Alert and oriented x3. PSYCH: Normal affect. Course Course Emergency Course: Patient is aware of diagnosis, understands and agrees to treatment plan. Anticipatory guidance given. Patient agrees to follow-up as directed and is aware of reasons to seek care at the emergency department. Portions of this record may have been created with voice recognition software Level of Care: Express Care Visit Vital Signs Vital signs: Vital Signs Temperature 98.6 F 01/12/25 18:56 Pulse Rate 80 01/12/25 18:56 Respiratory Rate 20 01/12/25 18:56 Blood Pressure 156/106 H 01/12/25 18:56 Pulse Oximetry 100 01/12/25 18:56 Oxygen Delivery Room Air 01/12/25 18:56 Temperature 98.6 F 01/12/25 18:56 Pulse Rate 80 01/12/25 18:56 Respiratory Rate 20 01/12/25 18:56 Blood Pressure 156/106 H 01/12/25 18:56 Pulse Oximetry 100 01/12/25 18:56 Oxygen Delivery Room Air 01/12/25 18:56 MDM - Nausea/Vomiting/Diarrhea MDM Narrative Medical decision making narrative: Pt presented with n/v. Zofran given in clinic Pt reassessed, she states she feels better but not fully resolved. Offered ER transfer. Through shared decision making, pt will be dc home with rx ondansetron. Discussed physical exam findings. Advised supportive measures and signs/symptoms to go to the ER. Pt is appropriate for outpt treatment and f/u. Differential Diagnosis Differential diagnosis: Likely traveler's diarrhea, food poisoning, gastroenteritis, dehydration and other (pancreatitis, renal stones, bowel obstruction, UTI) Discharge Plan Discharge Clinical Impression: Nausea & vomiting Patient Disposition: Home Condition: Stable Instructions: Antibiotic Form, Gastroenteritis (ED) Additional Instructions: Stay hydrated. Take small sips of fluid containing electrolytes frequently. Clear liquids (broth, jello, tea, sprite, pedialyte) [place] foods (bananas, rice, applesauce, toast, crackers) Avoid fatty, greasy, fried or spicy foods. Limit dairy until symptoms are improved. Ondansetron as needed for nausea You should go to the hospital if you experience persistent nausea and vomiting that does not resolve and does not allow you to tolerate any food or fluids, fevers, increasing abdominal pain, persistent diarrhea, dizziness, fainting, or for any other concerns. Follow up with primary care provider in 3 days. Patient Language: Uzbek Prescriptions: New ondansetron 4 mg tablet,disintegrating 4 mg PO Q8H PRN (Reason: nausea and vomiting) Qty: 20 0RF No Action Wegovy 1.7 mg/0.75 mL pen injector See Rx Instructions .ROUTE .COMPLEX Rx Instructions: as prescribed pantoprazole 40 mg tablet,delayed release (DR/EC) PO Follow-up/Referrals: Sarah,Paul Alvarenga MD [Primary Care Provider] - Time of Disposition: 19:35
[2025-01-12] MEDS: ONDANSETRON HCL ODT 4 MG TABLET SUBLINGUAL (19:14)
== END 2025-01-12 19:40 | disposition home or self-care (01) ==
PROVIDERS: Emergency Provider Nurse Practitioner Family; PCP Family Medicine Sports Medicine
DX: R11.2 Nausea with vomiting, unspecified (principal); Z98.84 Bariatric surgery status
CPT/HCPCS: 99213; A9270; G0463

== ENCOUNTER 2025-07-07 08:55 | Emergency (ER) | payer OTHER, SELFPAY ==
[2025-07-07 08:58] VITALS: BP 141/88; PULSE 73; RESP 16; TEMP 36.6; O2SAT 100
--- NOTE | 2025-07-07 09:19 | ED_ITS ---
HPI - URI/Sore Throat General Stated Complaint: sore throat Time Seen by Provider: 07/07/25 09:15 Source: patient Mode of arrival: ambulatory Limitations: no limitations History of Present Illness HPI Narrative: Shasha is a 39-year-old female patient presenting to the clinic today with complaints of sore throat and some nasal congestion x1 day. She reports her tested positive for strep in the clinic today. Denies any fevers, chills, body aches. Has taken ibuprofen this morning for pain. Rates pain 4/10 currently. Denies any known fevers, chills, body aches. MD elicited complaint: sore throat and nasal congestion Related Data Home Medications ?Medication ?Instructions ?Recorded ?Confirmed ?Last Taken ?Type semaglutide (weight loss) 1.7 See Rx Instructions .Rou te .COMPLEX 07/18/24 07/18/24 Unknown History mg/0.75 mL subcutaneous pen injector (Wegovy) pantoprazole 40 mg tablet,delayed mg PO 01/12/25 Unkn own History release Allergies Allergy/AdvReac Type Severity Reaction Status Date / Time Penicillins Allergy Mild Rash Verified 07/07/25 08:58 prednisone AdvReac Anxiety Verified 07/07/25 08:58 Review of Systems Review of Systems: Pertinent positives per HPI. Patient denies any fever, chills, rash, headache, visual changes, dizziness, cough, shortness of breath, chest pain, palpitations, nausea, vomiting, diarrhea, constipation, abdominal pain, or any urinary issues. [facility] Surgical History Surgical History (Updated 01/12/25 @ 19:14 by Savanna Craig APRN) H/O gastric sleeve Comments At the time of my signature, I reviewed and agree with the nursing past medical, surgical, social, and family history. There is no relevant family history pertinent to the patient complaint. Exam Narrative: General: Well-developed, obese, in no apparent distress Head: Normocephalic, atraumatic Eyes: Pupils equally round and reactive to light bilaterally, EOM intact, sclera and conjunctive clear, no discharge, lids normal Ears: TMs intact and congested, ear canals clear, no drainage, grossly hearing normal. Nose: Nares patent, clear discharge, mild inflammation, no sinus tenderness. Mouth: Oral pharynx red with mild tonsillar enlargement without lesions or masses, good dentition, MMM. Neck: Supple, trachea midline, no enlargement of anterior or posterior cervical nodes, no thyroid masses or goiter palpable. Cardio: Regular rate and rhythm, s1 and s2 normal, no murmur appreciated. Resp: Clear to auscultation bilaterally, no rhonchi, rales, wheezing or rubs Course Course Emergency Course: Portions of this record may have been created with voice recognition software. Level of Care: Express Care Visit Vital Signs Vital signs: Vital Signs Temperature 36.6 C 07/07/25 08:58 Pulse Rate 73 07/07/25 08:58 Respiratory Rate 16 07/07/25 08:58 Blood Pressure 141/88 H 07/07/25 08:58 Pulse Oximetry 100 07/07/25 08:58 Oxygen Delivery Room Air 07/07/25 08:58 Temperature 36.6 C 07/07/25 08:58 Pulse Rate 73 07/07/25 08:58 Respiratory Rate 16 07/07/25 08:58 Blood Pressure 141/88 H 07/07/25 08:58 Pulse Oximetry 100 07/07/25 08:58 Oxygen Delivery Room Air 07/07/25 08:58 Vital signs reviewed MDM - URI/Sore Throat MDM Narrative Medical decision making narrative: At the time of visit patient is resting comfortably on the exam table. Patient appears to be nontoxic. Complaints of sore throat and some nasal congestion x1 day. She reports her tested positive for strep in the clinic today. Denies any fevers, chills, body aches. Has taken ibuprofen this morning for pain. Rates pain 4/10 currently. On exam patient has TMs intact and congested, clear nasal drainage, mild anterior turbinates inflammation, oral pharynx red with mild tonsillar enlargement, no cervical lymphadenopathy, lung sounds are clear, heart rates regular rate and rhythm. Strep test was ordered. Labs: Strep test was positive in the clinic today Plan: Patient has strep pharyngitis. Prescription for azithromycin was sent to the pharmacy as patient has allergies to penicillins. Does not need a work note. Supportive measures were discussed with the patient and they voiced understanding discharge instructions and agrees to treatment plan. Return precautions reviewed Differential Diagnosis Differential diagnosis: Likely upper respiratory infection, otitis media, sinusitis, viral infection, bronchitis, influenza, pharyngitis and other (COVID) Discharge Plan Discharge Clinical Impression: Strep pharyngitis Patient Disposition: Home Condition: Stable Instructions: Antibiotic Form, Strep Throat (ED) Additional Instructions: Strep test was positive in the clinic today Take prescription medications only as prescribed-azithromycin Change your toothbrush in 24 hours after initiation of the antibiotics Increase fluids and stay well hydrated May take Tylenol or motrin as directed on bottle for pain/fever May use Flonase 1 spray in each nare daily May take OTC antihistamines such as Zyrtec or Claritin daily as directed on bottle May apply Vicks vapor rub to chest to open sinuses Sinus rinses for congestion Cepacol spray, cough drops, throat lozenges, warm tea with honey/lemon, gargle salt water to soothe throat BRAT diet for diarrhea Clear liquids x 24 hours then advance as tolerated for nausea/vomiting Go to the ED if you develop a worsening in your condition- high fever not controlled by Tylenol or Motrin, dehydration, weakness, lethargy, shortness of breath, or chest pain. Follow up with your PCP in 3-5 days if symptoms persist. Patient Language: Nepali Prescriptions: New azithromycin 250 mg tablet See Rx Instructions .ROUTE .COMPLEX Qty: 6 0RF Rx Instructions: For 250 mg dose pack: take 500 mg today (day 1), then 250 mg for 4 days (days 2-5) No Action Wegovy 1.7 mg/0.75 mL pen injector See Rx Instructions .ROUTE .COMPLEX Rx Instructions: as prescribed pantoprazole 40 mg tablet,delayed release (DR/EC) PO Follow-up/Referrals: Sarah,Paul Alvarenga MD [Primary Care Provider, [facility]] Time of Disposition: 09:25 Quality NIHSS Nursing Documentation ED NIHSS nursing documentation: reviewed/agree
[2025-07-07 09:30] LABS: EDSTREPNEGPOS1 Positive (Negative)
--- OUTSIDE RECORDS SUMMARY | 2025-07-07 09:38 | XMS_ITS | Encounter Summary ---
Author Organization [facility] Address [address] [place] [address] Care Team Providers Care Payroll Human Resources Assistant Name Role Phone Anastacio Sheriff MD Primary Care Provider [phone] Paul Smith MD Primary Care Provider [phone] Reason for Visit * Reason Comments Refill Request Encounter Details Date Type Department Care Team (Late st Contact Info) Description 11/19/2020 Refill [facility] OB [address] [place], [place] [id number] Shruthi Martinez, DO [address] [place] [address] Refill Request Social History Tobacco [...] on filedocumented in this encounter Care Teams Payroll Human Resources Assistant Relationship Specialty Start Date End Date Anastacio Sheriff MD [address] [place] [address] PCP - General 10/28/20 05/22/22 Paul Smith MD [address] [place] [address] PCP - General Family Medicine 05/23/22 documented as of this encounter
--- OUTSIDE RECORDS SUMMARY | 2025-07-07 09:38 | XMS_ITS | Clinical Summary ---
Author Organization [email or web address] Address [address] [facility] [place] [address] Care Team Providers Care Supply Specialist Name Role Phone Paul Smith MD Primary Care Provider [phone] Source Comments [facility],non-owned Affiliates and Associated Physician Practices is amultiple site organization consisting of ambulatory clinics and hospital sitesin [place], [place], [place] and [place]. This disclosure is being madepursuant to the Care Everywhere program and may not contain all information available regarding this patient. Last updated 18.[facility] Allergies Active Allergy Reactions Criticality Noted Date [...] 06/12/2024 vitamin D, ergocalciferol, (DRISDOL) 1.25 MG (66327 UT) capsuleIndicati ons:Vitamin D Deficiency Take 1 [...] hypertension wit hout significant proteinuria 01/02/2017 08/21/2020 Immunizations Immunization Administration Dates Next Due INFLUENZA [...] CDT Respiratory Rate 18 10/29/2020 7:35 AM IT AUDIT MANAGER Oxygen Saturation 99% 10/29/2020 7:35 AM IT AUDIT MANAGER Inhaled Oxygen Concentration - - Weight 117.9 kg (260 lb) 06/25/2024 3:18 PM CDT Height 157.5 cm (5' 2) 06/25/2024 3:18 PM CDT Body Mass Index 47.55 06/25/2024 3:18 PM CDT Plan of Treatment Health Maintenance Due Date Last Done Comments HEPATITIS C SCREENING 08/08/2003 HEPATITIS B VACCINE (1 of 3 - 19+ 3-dose series) 2004 HPV VACCINE (1 - 3-dose SCDM series) 2012 DEPRESSION SCREENING 09/16/2024 06/12/2024 COVID-19 VACCINE (4 - season) 2025 08/24/2021, 01/03/2021, 12/06/2020 INFLUENZA VACCINE (#1) 2025 , 06/15/2020, 08/14/2016 PAP with HPV 06/12/2029 06/12/2024, [...] Procedure Name Priority Date/Time Associated Diagnosis Comments HPV DETECTION HIGH RISK VINCE Routine 06/12/2024 2:41 PM CDT Screening for cervical cancer HIV-1 HIV-2 ANTIBODY + HIV P24 AG PANEL Routine 08/10/2020 12:29 PM IT AUDIT MANAGER History of gastric surgery Supervision of high risk in third trimester Screen for STD (sexually transmitted disease) from Last 3 Months or Most Recently Relevant to Health Maintenance Results * HPV DETECTION HIGH RISK VINCE (06/12/2024 2:41 PM CDT) High Risk Human Papilloma Result Not detected Not detected 06/18/2024 2:46 PM CDT [facility] High Risk Human Papilloma Interp 06/18/2024 2:46 PM CDT [facility] Comment:High Risk Human Giuseppe lloma Virus was Not Detected. Pathology/Cytolo gy MISCELLANEOUS SAMPLES / Unknown 06/12/2024 2:41 PM CDT 06/15/2024 12:51 PM CDT Narrative [facility] - 06/18/2024 2:46 PM CDT Nucleic acid isolated from the specimen was analyzed with a nucleic acid amplification test (FDA approved Gen-Probe HPV Assay) to detect high risk human papilloma virus (Types: 16, 18, 31, 33, 35, 39, 45, 51, 52, 56, 58, 59, 66, and 68). The reference range is Not Detected. Comment: These test results should not be used as the sole basis for clinical assessment and treatment of patients. These results should always be correlated with other available data (cytology, histology, and clinical information). Tracy Berry MD LAB - MICROBIOLOGY ORDERA BLES Final Result [facility] [address] [facility]. [address] [phone] * HIV-1 HIV-2 ANTIBODY + HIV P24 AG PANEL (08/10/2020 12:29 PM IT AUDIT MANAGER) HIV Screen 4th Generation w Reflex NON-REACT CARLOS EDUARDO NON-REACT CARLOS EDUARDO [facility] Comment: HIV-1 antigen and HIV-1/HIV-2 antibodies [...] purpose. For additional information please refer to http://education.Snapguide/faq/MTX624 (This link is being provided for informational/ educational purposes only.) The performance of this assay has not been clinically validated in patients less than 2 years old. Test Performed at: [facility] [address] [place] [address] LYNDSEY PRIETO DO,MPH Blood BLOOD SPECIMEN / Unknown 08/10/2020 12:29 PM IT AUDIT MANAGER 08/10/2020 1:29 PM IT AUDIT MANAGER Yoni English MD LAB - CHEMISTRY ORDERA BLES Final Result [facility] [id number] [place] [address] from Last 3 Months or Most Recently [...] 5:51 PM 01/20/2017 4:32 PM Care Teams Supply Specialist Relationship Specialty Start Date End Date Paul Smith MD [address] [place] [address] PCP - General Family Medicine 05/23/22
--- OUTSIDE RECORDS SUMMARY | 2025-07-07 09:38 | XMS_ITS | Encounter Summary ---
Author Organization [facility] Address [address] [place] [place] [address] Care Team Providers Care Insole Filler Name Role Phone Anastacio Sheriff MD Primary Care Provider [phone] Paul Smith MD Primary Care Provider [phone] Reason for Visit * Reason Onset Date Comments MEDICATION REFILL 12/02/2020 Encounter Details Date Type Department Care Team (Late st Contact Info) Description 12/02/2020 Refill [facility] PHYS OB [address] [place], [place] [id number] Shruthi Martinez, DO [address] [place] [address] MEDICATION REFILL Social History Tobacco [...] of Assessment Author No 10/26/2020 9:03 AM CHART PICKER Cherri, Ta ylor N, RN * Is [...] on filedocumented in this encounter Care Teams Insole Filler Relationship Specialty Start Date End Date Anastacio Sheriff MD [address] [place] [address] PCP - General 10/28/20 05/22/22 Paul Smith MD [address] [place] [address] PCP - General Family Medicine 05/23/22 documented as of this encounter
== END 2025-07-07 09:34 | disposition home or self-care (01) ==
PROVIDERS: Emergency Provider Nurse Practitioner Family; PCP Family Medicine Sports Medicine
DX: J02.0 Streptococcal pharyngitis (principal); K21.9 Gastro-esophageal reflux disease without esophagitis; E28.2 Polycystic ovarian syndrome; Z98.84 Bariatric surgery status
CPT/HCPCS: 87880; 99213; G0463